=== PATIENT | female | born 1970 | race Caucasian/White ===

== ENCOUNTER 2016-06-14 07:07 | Day surgery (SDC) | payer BC ==
[~2016-06-14] VITALS: Ht 167.6 cm; Wt 80.5 kg
[~2016-06-14 07:07] MED LIST: CELEXA 20MG20 MG/TAB PO; CELEXA10 MG PO; CLARITIN 1010 MG/TAB PO; EXCEDRIN1 TAB PO; FISH OIL 1000MG1 CAP PO; FISH OIL500 MG; Lovenox SQ; MULTIPLE VITAMI1 CAP PO; NEXIUM 40MG40 MG PO; NO HOME MEDICATIONS; NORCO 325 MG-51 TAB PO; NORCO PO; PROBIOTIC-MAJOR PO; SYNTHROID0.05 MG/TA PO
[2016-06-14 07:42] VITALS: BP 119/68; PULSE 74; TEMP 97.8
[2016-06-14 10:14] VITALS: BP 94/58; PULSE 67
[2016-06-14 10:29] VITALS: BP 113/68; PULSE 69
[2016-06-14 10:44] VITALS: BP 94/55; PULSE 69
[2016-06-14 10:59] VITALS: BP 100/69; PULSE 73
== END 2016-06-14 11:38 | disposition home or self-care (01) ==
LOC: SDCO 07:07
DX: Z45.2 Encounter for adjustment and management of vascular access device (principal); C50.411 Malignant neoplasm of upper-outer quadrant of right female breast; E03.9 Hypothyroidism, unspecified; K21.9 Gastro-esophageal reflux disease without esophagitis; F17.210 Nicotine dependence, cigarettes, uncomplicated; F32.9 Major depressive disorder, single episode, unspecified; Z85.3 Personal history of malignant neoplasm of breast; Z79.899 Other long term (current) drug therapy; Z17.0 Estrogen receptor positive status [ER+]
CPT/HCPCS: C1788; J0690; J2704; J3010; J7120

== ENCOUNTER → 2017-09-13 | Outpatient (CLI) | payer BC | LOC: MC.RAD 08:50 | DX: N63.10 Unspecified lump in the right breast, unspecified quadrant (principal); R22.2 Localized swelling, mass and lump, trunk ==

== ENCOUNTER 2019-05-18 15:30 | Emergency (ER) | payer BC ==
[~2019-05-18] VITALS: Ht 165.1 cm; Wt 75.0 kg
[2019-05-18 15:51] VITALS: TEMP 99.9
[2019-05-18 17:43] LABS: COLLECTION METHOD CLEAN CATCH
[2019-05-18 17:48] LABS: MUCOUS Present /lpf; PH 7 (5-8); SQUAMOUS EPITHELIAL 0-2 /hpf; URINE APPEARANCE Hazy; URINE BACTERIA Rare /hpf; URINE BILIRUBIN Negative (NEGATIVE); URINE BLOOD Negative (NEGATIVE); URINE COLOR Yellow; URINE GLUCOSE Negative (NEGATIVE); URINE KETONE Negative (NEGATIVE); URINE LEUKOCYTE ESTERASE Negative (NEGATIVE); URINE NITRATE Negative (NEGATIVE); URINE PROTEIN(semi-quant) Negative (NEGATIVE); URINE RBC 0-2 /hpf; URINE UROBILINOGEN Negative (NEGATIVE)
[2019-05-18 17:54] LABS: BASO # 0.1 (0.0-0.2); BASO % 0.4 % (0.0-2.0); EOS % 0.2 % (0-4.0); GRAN # 13.5 (1.4-6.5); GRAN % 77.7 % (42.2-75.2); HEMATOCRIT 39.9 % (37.0-47.0); HEMOGLOBIN 13.3 g/dl (12.5-16.0); LYMPH # 2.9 (1.2-3.4); LYMPH % 16.8 % (20.0-51.0); MEAN CELL VOLUME 90 fl (80.0-100.0); MEAN CORPUSCULAR HEMOGLOBIN 30 pg (27.0-31.0); MEAN CORPUSCULAR HGB CONC 33 g/dl (33.0-37.0); MEAN PLATELET VOLUME 11.3 fl (7.4-10.4); MONO # 0.7 (0.1-0.6); PLATELET COUNT 262 K/mm3 (130-400); RED BLOOD COUNT 4.44 M/mm3 (4.10-5.30); REDCELL DISTRIBUTION WIDTH-CV 12.4 % (11.5-14.5)
[2019-05-18 18:17] LABS: ALANINE AMINOTRANSFERASE 20 U/L (9-52); ALBUMIN 4.3 gm/dL (3.5-5.0); ALKALINE PHOSPHATASE 62 U/L (50-136); ANION GAP 10 mmol/L (7-16); AST,SGOT 18 U/L (15-37); BILIRUBIN,TOTAL 0.3 mg/dL (0.0-1.0); BLOOD UREA NITROGEN 15 mg/dL (7-17); CALCIUM 9.3 mg/dL (8.4-10.2); CARBON DIOXIDE 20 mmol/L (22-30); CHLORIDE 106 mmol/L (98-107); CREATININE, serum 0.73 (0.52-1.25); GLUCOSE 102 mg/dL (74-106); LIPASE 40 U/L (23-300); POTASSIUM 4.1 mmol/L (3.4-5.0); SODIUM 136 mmol/L (137-145); TOTAL PROTEIN 7.7 gm/dL (6.4-8.2)
[2019-05-18 18:19] LABS: C-REACTIVE PROTEIN < 0.5 mg/dL (0.0-0.9)
[2019-05-18 18:34] VITALS: BP 113/55
[2019-05-18] MEDS ORDERED: NORCO 325 MG-51 TAB PO (21:01)
[2019-05-18 21:11] VITALS: PULSE 82
== END 2019-05-18 21:16 | disposition home or self-care (01) ==
LOC: COL.ER 15:30
PROVIDERS: Nurse Practitioner
DX: R10.32 Left lower quadrant pain (principal); F17.210 Nicotine dependence, cigarettes, uncomplicated; Z90.710 Acquired absence of both cervix and uterus; Z88.5 Allergy status to narcotic agent
CPT/HCPCS: J1170; J2405; J7030; Q9967

== ENCOUNTER 2022-02-28 17:24 | Emergency (ER) | payer OTHER ==
[~2022-02-28] VITALS: Ht 165.1 cm; Wt 75.0 kg
[2022-02-28 17:36] VITALS: TEMP 98
[2022-02-28 18:08] LABS: HEMATOCRIT 40.3 % (37.0-47.0); HEMOGLOBIN 13.7 g/dl (12.5-16.0); MEAN CELL VOLUME 88 fl (80.0-100.0); MEAN CORPUSCULAR HEMOGLOBIN 30 pg (27-31); MEAN CORPUSCULAR HGB CONC 34 g/dl (33.0-37.0); MEAN PLATELET VOLUME 10.5 fl (7.4-10.4); PLATELET COUNT 284 K/mm3 (130-400); RED BLOOD COUNT 4.56 M/mm3 (4.10-5.30); REDCELL DISTRIBUTION WIDTH-CV 12.5 % (11.5-14.5)
[2022-02-28 18:28] LABS: ALBUMIN 3.6 gm/dL (3.5-5.0); BILIRUBIN,TOTAL 0.1 mg/dL (0.2-1.2); C-REACTIVE PROTEIN 0.54 mg/dL (0.00-0.50); CALCIUM 8.9 mg/dL (8.4-10.2); CREATININE, serum 0.74 mg/dL (0.57-1.11); POTASSIUM 3.9 mmol/L (3.5-4.5); TOTAL PROTEIN 7.1 gm/dL (6.2-8.1)
[2022-02-28 18:49] LABS: BAND 1 % (0-10); HYPOCHROMIA 1+; LYMPHOCYTE 34 % (20.0-51.0); NEUTROPHILS 64 % (42.0-75.2); PLATELET ESTIMATE NORMAL (NORMAL)
[2022-02-28] MEDS ORDERED: ZOFRAN ODT4 MG PO (19:28)
[2022-02-28 19:40] VITALS: BP 124/85; PULSE 87
== END 2022-02-28 19:42 | disposition home or self-care (01) ==
LOC: COL.ER 17:24
PROVIDERS: Emergency Medicine
DX: K44.9 Diaphragmatic hernia without obstruction or gangrene (principal); D72.829 Elevated white blood cell count, unspecified; F17.210 Nicotine dependence, cigarettes, uncomplicated; Z98.890 Other specified postprocedural states
CPT/HCPCS: J2405; J2550; J7030; Q9967

== ENCOUNTER 2022-03-06 07:09 | Day surgery (SDC) | payer OTHER ==
[~2022-03-06] VITALS: Ht 165.1 cm; Wt 75.0 kg
[~2022-03-06 07:09] MED LIST changes: +ZOFRAN ODT4 MG PO
[2022-03-06 07:39] VITALS: BP 119/74; PULSE 81; TEMP 97.4
[2022-03-06] MEDS ORDERED: MOBIC 7.5MG7.5 MG PO (07:51)
[2022-03-06] MEDS ORDERED: LIPITOR20 MG PO (07:51)
[2022-03-06] MEDS ORDERED: TRIAMC 0.1 454 TOP (07:52)
[2022-03-06] MEDS ORDERED: TAMOXIFEN CITRA20 MG PO (07:52)
[2022-03-06 08:35] VITALS: BP 113/80; PULSE 83
--- NOTE | 2022-03-06 08:36 | NUR ---
REPORT RECEIVED FROM TANIYA OH. PT SITTING IN CHAIR, TOLERATING PO LIQUIDS AND CRACKERS WELL; VSS. SPOUSE AT BEDSIDE. CALL GRANT WITHIN REACH; SAFETY MAINTAINED.
[2022-03-06 08:44] VITALS: BP 134/88; PULSE 77
[2022-03-06 08:56] VITALS: BP 127/97; PULSE 79
--- NOTE | 2022-03-06 09:02 | NUR ---
DISCHARGE INSTRUCTIONS GIVEN TO PT AND SPOUSE; UNDERSTANDING VERBALIZED; QUESTIONS ANSWERED. PT DISCHARGED VIA WC WITH SPOUSE DRIVING. SAFETY MAINTAINED.
== END 2022-03-06 09:02 | disposition home or self-care (01) ==
LOC: SDCO 07:09
DX: K44.9 Diaphragmatic hernia without obstruction or gangrene (principal); T18.2XXA Foreign body in stomach, initial encounter; C50.411 Malignant neoplasm of upper-outer quadrant of right female breast; F17.210 Nicotine dependence, cigarettes, uncomplicated; K21.9 Gastro-esophageal reflux disease without esophagitis; X58.XXXA Exposure to other specified factors, initial encounter
CPT/HCPCS: J2704; J7120

== ENCOUNTER → 2022-03-16 | Outpatient (CLI) | payer OTHER ==
[~2022-03-16] MED LIST changes: +LIPITOR20 MG PO; +MOBIC 7.5MG7.5 MG PO; +TAMOXIFEN CITRA20 MG PO; +TRIAMC 0.1 454 TOP
== END ==
LOC: COL.RAD 06:51
DX: R10.13 Epigastric pain (principal)
CPT/HCPCS: A9541